=== PATIENT | female | born 1955 | race Caucasian/White ===

== ENCOUNTER 2017-06-18 08:00 | Outpatient (CLI) | payer BC | END 2017-06-18 08:01 | disposition home or self-care (01) | LOC: BICULT 08:00 | PROVIDERS: ATTEND Family Medicine | DX: E06.3 Autoimmune thyroiditis (principal); M25.562 Pain in left knee; M25.561 Pain in right knee; E04.1 Nontoxic single thyroid nodule; M17.0 Bilateral primary osteoarthritis of knee | CPT/HCPCS: 76536 ==

== ENCOUNTER 2017-07-06 10:39 | Outpatient (CLI) | payer BC | END 2017-07-06 10:40 | disposition home or self-care (01) | LOC: BICULT 10:39 | PROVIDERS: ATTEND Family Medicine | DX: R94.5 Abnormal results of liver function studies (principal); R16.0 Hepatomegaly, not elsewhere classified; K76.0 Fatty (change of) liver, not elsewhere classified | CPT/HCPCS: 76705 ==

== ENCOUNTER 2017-07-13 14:54 | Outpatient (CLI) | payer BC | END 2017-07-13 14:55 | disposition home or self-care (01) | LOC: BICMAMMO 14:54 | PROVIDERS: ATTEND Family Medicine | DX: Z12.31 Encounter for screening mammogram for malignant neoplasm of breast (principal) | CPT/HCPCS: 77063; 77067 ==

== ENCOUNTER 2022-08-28 05:42 | Day surgery (SDC) | payer BC ==
[2022-08-27 13:37] VITALS: BMI 41.5
[~2022-08-28 05:42] MED LIST: EPINEPHrine 0.3 MG in Ophthalmic Irrigation Solution 500 ML IRR SCH
[2022-08-28] MEDS ORDERED: Phenylephrine 2.5% Ophth Soln 5 ML BOT ONE (06:21)
[2022-08-28] MEDS ORDERED: Cyclopentolate 1% Opth Drop 2 ML BOT ONE (06:21)
[2022-08-28] MEDS ORDERED: Midazolam HCl 2 mg/2 ml Vial ONE (06:33)
[2022-08-28] MEDS ORDERED: PROPOFOL 20 ML ONE (06:34)
[2022-08-28] MEDS ORDERED: fentaNYL PF 100 MCG/2 ML SYRINGE ONE (06:34)
[2022-08-28] MEDS ORDERED: CEFAZOLIN 1 GM VIAL ONE (07:06)
[2022-08-28] MEDS ORDERED: Triamcinolone 40 MG/ML VIAL ONE (07:06)
[2022-08-28] MEDS ORDERED: Lidocaine 4% PF 5 ML AMP ONE (07:06)
[2022-08-28] MEDS ORDERED: Maxitrol 0.1% Opth Oint 3.5 GM TUBE ONE (07:06)
[2022-08-28] MEDS ORDERED: Bupivacaine 0.75% 10 ML VIAL ONE (07:06)
[2022-08-28] MEDS ORDERED: Lidocaine 1% PF 5 ML VIAL ONE (07:06)
== END 2022-08-28 08:11 | disposition home or self-care (01) ==
LOC: SDC 05:42
PROVIDERS: ATTEND Ophthalmology Retina Specialist
PROC: 08T53ZZ Resection of Left Vitreous, Percutaneous Approach (ICD-10-PCS; principal; 2022-08-28)
PROC: 08NF3ZZ Release Left Retina, Percutaneous Approach (ICD-10-PCS; principal; 2022-08-28)
DX: H43.312 Vitreous membranes and strands, left eye (principal); G47.33 Obstructive sleep apnea (adult) (pediatric); E03.9 Hypothyroidism, unspecified; Z79.890 Hormone replacement therapy; Z79.899 Other long term (current) drug therapy; Z98.41 Cataract extraction status, right eye; Z98.42 Cataract extraction status, left eye; Z96.1 Presence of intraocular lens
CPT/HCPCS: J0171; J0690; J2250; J2704; J3301; J3490